=== PATIENT | female | born 1950 | race Two or more races ===

== ENCOUNTER 2017-09-05 08:26 | Outpatient (CLI) | payer OTHER | END 2017-09-05 08:33 | disposition home or self-care (01) | LOC: SONOGRAMA 08:26 | DX: E04.1 Nontoxic single thyroid nodule (principal) ==

== ENCOUNTER 2022-09-09 07:44 | Outpatient (CLI) | payer OTHER | END 2022-09-09 07:53 | disposition home or self-care (01) | LOC: NUCLEAR 07:44 | PROVIDERS: ATTEND Internal Medicine Cardiovascular Disease | DX: I10 Essential (primary) hypertension (principal) ==